=== PATIENT | male | born 1960 | race Caucasian/White ===

== ENCOUNTER 2018-01-22 20:00 | Inpatient (IN) | payer BC, OTHER ==
[~2018-01-22] VITALS: Ht 175.3 cm; Wt 99.1 kg
[~2018-01-22 20:00] MED LIST: AUGMENTIN500 MG PO; AZITHROMYCIN250 MG PO; CARDIZEM CD,CA240 MG PO; CHLORDIAZEPOXID25 MG PO; CYMBALTA30 MG PO; Cardizem CD,Cartia X PO; Ceftin PO; DUONEB 2.5-0.5 M3 ML AEROSOL; FLONASE16 G1 BOTH NARES; FOLIC ACID1 MG PO; Flonase BOTH NARES; Folvite PO; LANTUS 3 M100 UNITS1 SC; LASIX20 MG PO; LEVETIRACE100 MG/1 M PO; LEVO-T112 MCG PO; LIBRIUM25 MG PO; Lasix PO; METFORMIN HCL500 MG PO; NICOTINE PATCH1 EAC1 TD; NICOTINE PATCH1 EAC2 TD; NOVOLOG PE100 UNITS/ SC; PROTONIX40 MG PO; SUDAFED PE PRE1 EAC3 PO; SYNTHROID112 MCG PO; THERAGRAN1 TABLET PO; Thiamine,Vitamin B1 PO; VENTOLIN HFA18 GM IH; VITAMIN B-1100 MG PO; VITAMIN B-1250 MG PO; ZOLPIDEM TARTRAT5 MG PO
[2018-01-22 20:35] LABS: HEMATOCRIT 28.9 % (38.0-50.0); HEMOGLOBIN 10.7 G/DL (12.5-16.6); MCH 37.4 PG (29.0-34.0); NRBC (%) 0.4 /100 WBC (0-0); PLATELET COUNT 53 K/uL (156-360); RBC DIS.WIDTH-CV 14.9 % (11.8-14.6); RED BLOOD COUNT 2.86 M/uL (4.00-5.50); WHITE BLOOD COUNT 10.3 K/uL (4.1-10.2)
[2018-01-22 20:52] LABS: ALBUMIN 2.5 g/dL (3.2-4.8); CHLORIDE 87 mEq/L (99-109); POTASSIUM 2.9 mEq/L (3.7-5.4); SODIUM 128 mEq/L (136-147)
[2018-01-22 20:55] LABS: GLUCOSE 132 mg/dL (70-99); TOTAL PROTEIN 8.4 g/dL (6.4-8.3)
[2018-01-22 20:56] LABS: TOTAL BILIRUBIN 3.6 mg/dL (0.0-1.0)
[2018-01-22 20:57] LABS: SERUM ETHYL ALCOHOL 165 mg/dL
[2018-01-22 20:58] LABS: ALKALINE PHOSPHATASE 124 IU/L (3-129); CREATININE 1.4 mg/dL (0.6-1.3); GFR ESTIMATE (CALCULATED) 55 mL/min/ (58.99-99999)
[2018-01-22 20:59] LABS: UREA NITROGEN (BUN) 26 mg/dL (9-23)
[2018-01-22 21:00] LABS: AST (GOT) 142 IU/L (2-34)
[2018-01-22 21:01] LABS: ALT (GPT) 17 IU/L (3-49)
[2018-01-22 21:04] LABS: TROP-I INTERPRETATION NEGATIVE; TROPONIN-I 0.07 ng/mL (0.0-0.30)
[2018-01-22 21:30] LABS: ABS NEUTROPHIL COUNT 9.8; ANISOCYTOSIS 1+; BAND NEUTROPHILS 19.5 % (0-8.0); EOSINOPHIL ABS CT 0; LYMPHOCYTES 1.8 % (15.0-45.0); MACROCYTES 2+; MONOCYTES 2.6 % (0-9.0); SEG.NEUTROPHILS 76.1 % (46.0-76.0)
[2018-01-22 21:31] LABS: CREATINE KINASE 621 IU/L (1-294); LIPASE 103 U/L (1.0-51.0)
[2018-01-22 21:47] LABS: INTER. NORMALIZED RATIO 1.9
[2018-01-23] VITALS (29 sets, daily range): BP systolic 111–180; BP diastolic 53–641
[2018-01-23 00:08] LABS: COMMENTS - BLOOD GASES C+; O2 FLOW 3 L/MIN; SITE RR
[2018-01-23 00:09] LABS: DEVICE NC; PCO2 23 mm Hg (35-45); PO2 86 mm Hg (80-100); TOTAL RESP RATE 23 resp/min; pH 7.43 (7.35-7.45)
[2018-01-23 00:10] LABS: BASE EXCESS -7.9 mEq/L (-3 to +3); BICARBONATE 15.3 mEq/L (22-26); METHEMOGLOBIN 0.9 % (0-1.5); O2 SATURATION (CALCULATED) 98.7 % (95-99)
[2018-01-23 00:27] LABS: MAGNESIUM 0.5 mg/dL (1.3-2.7)
[2018-01-23 00:58] LABS: CHLORIDE 95 mEq/L (99-109); POTASSIUM 2.5 mEq/L (3.7-5.4); SODIUM 128 mEq/L (136-147)
[2018-01-23 01:00] LABS: GLUCOSE 123 mg/dL (70-99)
[2018-01-23 01:03] LABS: PHOSPHORUS 3.4 mg/dL (2.5-4.9)
[2018-01-23 01:04] LABS: CREATININE 1.3 mg/dL (0.6-1.3); GFR ESTIMATE (CALCULATED) > 59 mL/min/ (58.99-99999)
[2018-01-23 01:05] LABS: UREA NITROGEN (BUN) 23 mg/dL (9-23)
[2018-01-23 01:27] LABS: APPEARANCE CLOUDY ((CLEAR)); BILIRUBIN SMALL; BLOOD LARGE; COLOR AMBER ((YELLOW)); GLUCOSE (STRIP) NEGATIVE; KETONES NEGATIVE; LEUKOCYTES TRACE; NITRITE NEGATIVE; PROTEIN (STRIP) 100; SPECIFIC GRAVITY 1.019 (1.000-1.030)
[2018-01-23 01:43] LABS: RED BLOOD CELLS TNTC /HPF (0-5)
[2018-01-23 01:44] LABS: BACTERIA 2+ /HPF; EPITHELIAL CELLS RARE /HPF; MUCUS NONE SEEN /LPF; UCUL ADDED? YES
[2018-01-23 01:45] LABS: COARSE GRANULAR CASTS 0-5 /LPF; FINE GRANULAR CASTS 0-5 /LPF; HYALINE CASTS RARE /LPF
[2018-01-23 01:47] LABS: AMPHETAMINE NEGATIVE (500 ng/mL); BENZODIAZEPINES NEGATIVE (150 ng/mL); COCAINE NEGATIVE (150 ng/mL); METHAMPHETAMINE NEGATIVE (500 ng/mL); OPIATES (MORPHINE) NEGATIVE (100 ng/mL); PHENCYCLIDINE NEGATIVE (25 ng/mL); THC CANNABINOIDS NEGATIVE (50 ng/mL); TRICYCLIC ANTIDEPRESSANTS NEGATIVE (300 ng/mL)
[2018-01-23 01:48] LABS: BARBITURATES NEGATIVE (200 ng/mL); BUPRENORPHINE NEGATIVE (10 ng/mL); METHADONE NEGATIVE (200 ng/mL); OXYCODONE NEGATIVE (100 ng/mL); PROPOXYPHENE NEGATIVE (300 ng/mL)
[2018-01-23 07:40] LABS: CHLORIDE 97 MEQ/L (99-109); CREATINE KINASE 425 IU/L (1-294); CREATININE 1.1 MG/DL (0.6-1.3); GFR ESTIMATE (CALCULATED) > 59 mL/min/ (58.99-99999); GLUCOSE 146 mg/dL (70-99); MAGNESIUM 2.2 mg/dl (1.3-2.7); SODIUM 133 MEQ/L (136-147); UREA NITROGEN (BUN) 21 mg/dL (9-23)
[2018-01-23 07:54] LABS: HEMATOCRIT 20.7 % (38.0-50.0); MCH 37.8 PG (29.0-34.0); MCHC 36.7 G/DL (30.0-36.0); NRBC (%) 0.3 /100 WBC (0-0); PLAT.SUFFICIENCY VERY DECREASED; RBC DIS.WIDTH-CV 15.2 % (11.8-14.6); RBC DIS.WIDTH-SD 56.7 % (39-53); WHITE BLOOD COUNT 6.8 K/uL (4.1-10.2)
[2018-01-23 07:55] LABS: HEMOGLOBIN 7.6 G/DL (12.5-16.6); IMM.PLATELET FRACTION 12.4 (1-7); PLATELET COUNT 31 K/uL (156-360); RED BLOOD COUNT 2.01 M/uL (4.00-5.50)
[2018-01-23 10:38] LABS: HEMOGLOBIN A1c (GLYCOHEMOGLOB) 5.2 % (Below 5.7)
[2018-01-23 10:45] LABS: BASE EXCESS -8.2 mEq/L (-3 to +3); BICARBONATE 15.2 mEq/L (22-26); CARBOXY HGB 2.1 % (0-5); METHEMOGLOBIN 1.7 % (0-1.5); PCO2 24 mm Hg (35-45); pH 7.41 (7.35-7.45)
[2018-01-23 10:46] LABS: PO2 67 mm Hg (80-100)
[2018-01-23 10:47] LABS: DEVICE NC; O2 FLOW 4 L/MIN; SITE R ALINE; TOTAL RESP RATE 21 resp/min
[2018-01-23 13:23] LABS: CHLORIDE 99 MEQ/L (99-109); GFR ESTIMATE (CALCULATED) > 59 mL/min/ (58.99-99999); GLUCOSE 120 mg/dL (70-99); PHOSPHORUS 2.1 mg/dL (2.5-4.9); POTASSIUM 3.6 MEQ/L (3.7-5.4); SODIUM 132 MEQ/L (136-147); UREA NITROGEN (BUN) 21 mg/dL (9-23)
[2018-01-23 16:06] LABS: CHLORIDE 105 MEQ/L (99-109); POTASSIUM 3.2 MEQ/L (3.7-5.4); SODIUM 133 MEQ/L (136-147)
[2018-01-23 16:51] LABS: GFR ESTIMATE (CALCULATED) > 59 mL/min/ (58.99-99999); GLUCOSE 123 mg/dL (70-99); UREA NITROGEN (BUN) 21 mg/dL (9-23)
[2018-01-23 17:22] LABS: HEMATOCRIT 20.6 % (38.0-50.0); HEMOGLOBIN 7.4 G/DL (12.5-16.6); MCH 37.2 PG (29.0-34.0); MCHC 35.9 G/DL (30.0-36.0); MCV 103.5 FL (86-99); NRBC (%) 0.7 /100 WBC (0-0); RBC DIS.WIDTH-CV 15.8 % (11.8-14.6); RBC DIS.WIDTH-SD 59.3 % (39-53); RED BLOOD COUNT 1.99 M/uL (4.00-5.50); WHITE BLOOD COUNT 8.2 K/uL (4.1-10.2)
[2018-01-23 17:55] LABS: BASOPHIL (%) 0.1 % (0-1); EOSINOPHIL (%) 0.2 % (0-5); HEMATOLOGY COMMENT 1 SN; IMM.PLATELET FRACTION 11.7 (1-7); IMMATURE GRANULOCYTE (%) 0.9 % (0.0-0.7); LYMPHOCYTE (%) 8.2 % (15-42); LYMPHOCYTE COUNT 0.7 K/uL (1.0-2.8); MONOCYTE (%) 7.7 % (3-12); MONOCYTE COUNT 0.6 K/uL (0-0.8); NEUTROPHIL (%) 82.9 % (45-76); NEUTROPHIL COUNT 6.8 K/uL (1.8-6.4); PLAT.SUFFICIENCY DECREASED; PLATELET COUNT 35 K/uL (156-360)
[2018-01-23 20:24] LABS: CHLORIDE 104 MEQ/L (99-109); CREATININE 1.1 MG/DL (0.6-1.3); GFR ESTIMATE (CALCULATED) > 59 mL/min/ (58.99-99999); GLUCOSE 162 mg/dL (70-99); POTASSIUM 3.5 MEQ/L (3.7-5.4); SODIUM 133 MEQ/L (136-147); UREA NITROGEN (BUN) 23 mg/dL (9-23)
[2018-01-23 20:25] LABS: PHOSPHORUS 2.7 mg/dL (2.5-4.9)
[2018-01-24] VITALS (23 sets, daily range): BP systolic 109–185; BP diastolic 63–94
[2018-01-24 00:36] LABS: POTASSIUM 4.1 mEq/L (3.7-5.4); SODIUM 135 mEq/L (136-147)
[2018-01-24 00:37] LABS: CHLORIDE 106 mEq/L (99-109)
[2018-01-24 00:41] LABS: CREATININE 0.9 mg/dL (0.6-1.3); GFR ESTIMATE (CALCULATED) > 59 mL/min/ (58.99-99999); PHOSPHORUS 3.2 mg/dL (2.5-4.9)
[2018-01-24 00:42] LABS: UREA NITROGEN (BUN) 21 mg/dL (9-23)
[2018-01-24 01:16] LABS: GLUCOSE 120 mg/dL (70-99)
[2018-01-24 04:17] LABS: C DIFF TOXIN POSITIVE (NEGATIVE)
[2018-01-24 04:31] LABS: STOOL OCCULT BLD 1ST SPECIMEN POSITIVE
[2018-01-24 05:32] LABS: BASE EXCESS -3.3 mEq/L (-3 to +3); BICARBONATE 20.2 mEq/L (22-26); CARBOXY HGB 2.1 % (0-5); COMMENTS - BLOOD GASES C+; DEVICE NCH; METHEMOGLOBIN 1.3 % (0-1.5); O2 FLOW 15 L/MIN; PCO2 29 mm Hg (35-45); PO2 73 mm Hg (80-100); SITE LR; TOTAL RESP RATE 32 resp/min; pH 7.45 (7.35-7.45)
[2018-01-24 05:47] LABS: INTER. NORMALIZED RATIO 1.7
[2018-01-24 05:48] LABS: PTT 31.7 SEC (25-37)
[2018-01-24 05:51] LABS: HEMATOCRIT 19.6 % (38.0-50.0); MCHC 35.7 G/DL (30.0-36.0); MCV 106.5 FL (86-99); NRBC (%) 0.2 /100 WBC (0-0); RBC DIS.WIDTH-CV 15.9 % (11.8-14.6); RBC DIS.WIDTH-SD 61.4 % (39-53); RED BLOOD COUNT 1.84 M/uL (4.00-5.50); WHITE BLOOD COUNT 8.3 K/uL (4.1-10.2)
[2018-01-24 05:53] LABS: PLATELET COUNT 93 K/uL (156-360)
[2018-01-24 06:10] LABS: CHLORIDE 105 MEQ/L (99-109); CREATININE 1.1 MG/DL (0.6-1.3); GFR ESTIMATE (CALCULATED) > 59 mL/min/ (58.99-99999); GLUCOSE 105 mg/dL (70-99); PHOSPHORUS 2.4 mg/dL (2.5-4.9); POTASSIUM 3.3 MEQ/L (3.7-5.4); SODIUM 135 MEQ/L (136-147); UREA NITROGEN (BUN) 21 mg/dL (9-23)
[2018-01-24 06:11] LABS: ABS NEUTROPHIL COUNT 6.4; ANISOCYTOSIS 3+; BAND NEUTROPHILS 18.3 % (0-8.0); BASOPHILS 0.9 %; EOSINOPHIL ABS CT 0.2; EOSINOPHILS 2.6 % (0-5.0); HYPOCHROMASIA 2+; LYMPHOCYTES 12.2 % (15.0-45.0); MACROCYTES 3+; MONOCYTES 6.9 % (0-9.0); NUCLEATED RBC'S 0.9; PLAT.SUFFICIENCY DECREASED; POLYCHROMASIA 2+; SEG.NEUTROPHILS 59.1 % (46.0-76.0); TARGET CELLS 2+
[2018-01-24 07:23] LABS: ALBUMIN 2.5 G/DL (3.2-4.8); ALKALINE PHOSPHATASE 73 IU/L (3-129); ALT (GPT) 16 IU/L (3-49); AST (GOT) 72 IU/L (2-34); CHLORIDE 104 MEQ/L (99-109); CREATININE 1.1 MG/DL (0.6-1.3); GFR ESTIMATE (CALCULATED) > 59 mL/min/ (58.99-99999); GLUCOSE 105 mg/dL (70-99); PHOSPHORUS 2.4 mg/dL (2.5-4.9); POTASSIUM 3.4 MEQ/L (3.7-5.4); SODIUM 136 MEQ/L (136-147); TOTAL BILIRUBIN 5.9 MG/DL (0.0-1.0); UREA NITROGEN (BUN) 21 mg/dL (9-23)
[2018-01-24 07:26] LABS: MAGNESIUM 1.3 mg/dl (1.3-2.7)
[2018-01-24 09:28] LABS: CHLORIDE 104 MEQ/L (99-109); CREATININE 1.2 MG/DL (0.6-1.3); GFR ESTIMATE (CALCULATED) > 59 mL/min/ (58.99-99999); GLUCOSE 96 mg/dL (70-99); PHOSPHORUS 2.1 mg/dL (2.5-4.9); POTASSIUM 3.4 MEQ/L (3.7-5.4); SODIUM 135 MEQ/L (136-147); UREA NITROGEN (BUN) 22 mg/dL (9-23)
[2018-01-24 10:28] LABS: CREATINE KINASE 297 IU/L (1-294)
[2018-01-24 17:03] LABS: CHLORIDE 106 MEQ/L (99-109); POTASSIUM 3.1 MEQ/L (3.7-5.4); SODIUM 136 MEQ/L (136-147)
[2018-01-24 17:08] LABS: CREATININE 1.2 MG/DL (0.6-1.3); GFR ESTIMATE (CALCULATED) > 59 mL/min/ (58.99-99999); GLUCOSE 116 mg/dL (70-99); UREA NITROGEN (BUN) 24 mg/dL (9-23)
[2018-01-25] VITALS (29 sets, daily range): BP systolic 110–155; BP diastolic 66–98
[2018-01-25 05:00] LABS: BASE EXCESS -1.5 mEq/L (-3 to +3); BICARBONATE 21.8 mEq/L (22-26); CARBOXY HGB 2.4 % (0-5); METHEMOGLOBIN 1.1 % (0-1.5); PCO2 30 mm Hg (35-45); PO2 86 mm Hg (80-100); pH 7.47 (7.35-7.45)
[2018-01-25 05:01] LABS: COMMENTS - BLOOD GASES C+; DEVICE NCH; O2 FLOW 6 L/MIN; SITE LB; TOTAL RESP RATE 24 resp/min
[2018-01-25 07:46] LABS: HEMATOCRIT 20.4 % (38.0-50.0); MCHC 33.3 G/DL (30.0-36.0); MCV 107.9 FL (86-99); NRBC (%) 0.7 /100 WBC (0-0); PLATELET COUNT 70 K/uL (156-360); RBC DIS.WIDTH-CV 15.9 % (11.8-14.6); RBC DIS.WIDTH-SD 62.5 % (39-53); RED BLOOD COUNT 1.89 M/uL (4.00-5.50); WHITE BLOOD COUNT 6.1 K/uL (4.1-10.2)
[2018-01-25 07:54] LABS: HEMOGLOBIN 6.8 G/DL (12.5-16.6)
[2018-01-25 08:01] LABS: BASOPHIL (%) 0.2 % (0-1); EOSINOPHIL (%) 1.3 % (0-5); EOSINOPHIL COUNT 0.1 K/uL (0-0.3); IMMATURE GRANULOCYTE (%) 0.7 % (0.0-0.7); LYMPHOCYTE (%) 12.3 % (15-42); LYMPHOCYTE COUNT 0.8 K/uL (1.0-2.8); MONOCYTE (%) 7.4 % (3-12); MONOCYTE COUNT 0.5 K/uL (0-0.8); NEUTROPHIL (%) 78.1 % (45-76); NEUTROPHIL COUNT 4.8 K/uL (1.8-6.4)
[2018-01-25 08:10] LABS: CHLORIDE 104 MEQ/L (99-109); CREATININE 1.2 MG/DL (0.6-1.3); GFR ESTIMATE (CALCULATED) > 59 mL/min/ (58.99-99999); POTASSIUM 3.1 MEQ/L (3.7-5.4); SODIUM 134 MEQ/L (136-147); UREA NITROGEN (BUN) 27 mg/dL (9-23)
[2018-01-25 08:12] LABS: GLUCOSE 206 mg/dL (70-99); MAGNESIUM 1.5 mg/dl (1.3-2.7); PHOSPHORUS < 1.0 mg/dL (2.5-4.9)
[2018-01-25 14:49] LABS: CHLORIDE 109 MEQ/L (99-109); POTASSIUM 3.2 MEQ/L (3.7-5.4); SODIUM 140 MEQ/L (136-147)
[2018-01-25 14:55] LABS: CREATININE 1.1 MG/DL (0.6-1.3); GFR ESTIMATE (CALCULATED) > 59 mL/min/ (58.99-99999); GLUCOSE 136 mg/dL (70-99); UREA NITROGEN (BUN) 26 mg/dL (9-23)
[2018-01-25 17:43] LABS: HEMATOCRIT 26.5 % (38.0-50.0); MCH 33.8 PG (29.0-34.0); MCHC 33.6 G/DL (30.0-36.0); NRBC (%) 0.7 /100 WBC (0-0); PLATELET COUNT 63 K/uL (156-360); RBC DIS.WIDTH-CV 20.2 % (11.8-14.6); WHITE BLOOD COUNT 5.9 K/uL (4.1-10.2)
[2018-01-25 17:48] LABS: ANISOCYTOSIS 2+; BAND NEUTROPHILS 7.1 % (0-8.0); EOSINOPHIL ABS CT 0.1; EOSINOPHILS 0.9 % (0-5.0); LYMPHOCYTES 9.7 % (15.0-45.0); MACROCYTES 2+; MONOCYTES 3.5 % (0-9.0); MYELOCYTES 0.9 %; NUCLEATED RBC'S 1.8; POLYCHROMASIA 1+; SEG.NEUTROPHILS 77.9 % (46.0-76.0); TARGET CELLS 1+
[2018-01-25 18:13] LABS: HEMOGLOBIN 8.9 G/DL (12.5-16.6); MCV 100.8 FL (86-99); RED BLOOD COUNT 2.63 M/uL (4.00-5.50)
[2018-01-26] VITALS (24 sets, daily range): BP systolic 108–164; BP diastolic 59–122
[2018-01-26 07:18] LABS: BASOPHIL (%) 0.8 % (0-1); BASOPHIL COUNT 0.1 K/uL (0-0.1); EOSINOPHIL COUNT 0.1 K/uL (0-0.3); HEMATOCRIT 35.6 % (38.0-50.0); IMMATURE GRANULOCYTE (%) 1.9 % (0.0-0.7); LYMPHOCYTE (%) 19.8 % (15-42); LYMPHOCYTE COUNT 1.5 K/uL (1.0-2.8); MCH 33.8 PG (29.0-34.0); MCHC 33.1 G/DL (30.0-36.0); MONOCYTE (%) 9.3 % (3-12); MONOCYTE COUNT 0.7 K/uL (0-0.8); NEUTROPHIL (%) 67.2 % (45-76); NEUTROPHIL COUNT 4.9 K/uL (1.8-6.4); NRBC (%) 2.5 /100 WBC (0-0); PLATELET COUNT 71 K/uL (156-360); RBC DIS.WIDTH-CV 21.6 % (11.8-14.6); RBC DIS.WIDTH-SD 81.6 % (39-53); WHITE BLOOD COUNT 7.3 K/uL (4.1-10.2)
[2018-01-26 07:22] LABS: HEMOGLOBIN 11.8 G/DL (12.5-16.6); RED BLOOD COUNT 3.49 M/uL (4.00-5.50)
[2018-01-26 07:39] LABS: CHLORIDE 109 MEQ/L (99-109); GFR ESTIMATE (CALCULATED) > 59 mL/min/ (58.99-99999); GLUCOSE 130 mg/dL (70-99); MAGNESIUM 1.7 mg/dl (1.3-2.7); PHOSPHORUS 1.1 mg/dL (2.5-4.9); POTASSIUM 3.7 MEQ/L (3.7-5.4); SODIUM 142 MEQ/L (136-147); UREA NITROGEN (BUN) 24 mg/dL (9-23); VANCOMYCIN, TROUGH 17.4 MCG/ML (10-20)
[2018-01-26 08:07] LABS: PLAT.SUFFICIENCY DECREASED
[2018-01-26 21:25] LABS: CHLORIDE 112 MEQ/L (99-109); CREATININE 1.1 MG/DL (0.6-1.3); GFR ESTIMATE (CALCULATED) > 59 mL/min/ (58.99-99999); GLUCOSE 140 mg/dL (70-99); POTASSIUM 3.3 MEQ/L (3.7-5.4); SODIUM 145 MEQ/L (136-147); UREA NITROGEN (BUN) 25 mg/dL (9-23)
[2018-01-27] VITALS (23 sets, daily range): BP systolic 95–150; BP diastolic 63–101
[2018-01-27 06:08] LABS: CHLORIDE 117 MEQ/L (99-109); CREATININE 1.1 MG/DL (0.6-1.3); GFR ESTIMATE (CALCULATED) > 59 mL/min/ (58.99-99999); GLUCOSE 138 mg/dL (70-99); POTASSIUM 3.5 MEQ/L (3.7-5.4); SODIUM 147 MEQ/L (136-147); UREA NITROGEN (BUN) 28 mg/dL (9-23)
[2018-01-27 06:12] LABS: MAGNESIUM 1.8 mg/dl (1.3-2.7); PHOSPHORUS 2.2 mg/dL (2.5-4.9)
[2018-01-27 06:21] LABS: BASOPHIL (%) 0.3 % (0-1); EOSINOPHIL (%) 0.7 % (0-5); HEMATOCRIT 28.7 % (38.0-50.0); IMMATURE GRANULOCYTE (%) 1.4 % (0.0-0.7); LYMPHOCYTE (%) 19.4 % (15-42); LYMPHOCYTE COUNT 1.1 K/uL (1.0-2.8); MCH 33.9 PG (29.0-34.0); MCHC 33.8 G/DL (30.0-36.0); MCV 100.3 FL (86-99); MONOCYTE (%) 7.1 % (3-12); MONOCYTE COUNT 0.4 K/uL (0-0.8); NEUTROPHIL (%) 71.1 % (45-76); NEUTROPHIL COUNT 4.1 K/uL (1.8-6.4); NRBC (%) 1.5 /100 WBC (0-0); PLATELET COUNT 53 K/uL (156-360); RBC DIS.WIDTH-CV 22.1 % (11.8-14.6); RBC DIS.WIDTH-SD 79.6 % (39-53); RED BLOOD COUNT 2.86 M/uL (4.00-5.50); WHITE BLOOD COUNT 5.8 K/uL (4.1-10.2)
[2018-01-27 06:22] LABS: HEMOGLOBIN 9.7 G/DL (12.5-16.6)
[2018-01-27 10:00] LABS: ALBUMIN 1.9 G/DL (3.2-4.8); ALKALINE PHOSPHATASE 70 IU/L (3-129); ALT (GPT) 14 IU/L (3-49); AST (GOT) 67 IU/L (2-34); CREATINE KINASE 72 IU/L (1-294); DIRECT BILIRUBIN 4.2 mg/dL (0.0-0.3); TOTAL BILIRUBIN 6.6 MG/DL (0.0-1.0); TOTAL PROTEIN 5.9 G/DL (6.4-8.3)
[2018-01-27 12:43] LABS: BASE EXCESS -5.9 mEq/L (-3 to +3); BICARBONATE 17.7 mEq/L (22-26); CARBOXY HGB 2.7 % (0-5); COMMENTS - BLOOD GASES A+C+; DEVICE NCH; METHEMOGLOBIN 1.1 % (0-1.5); O2 FLOW 6 L/MIN; PCO2 28 mm Hg (35-45); PO2 67 mm Hg (80-100); SITE LR; TOTAL RESP RATE 28 resp/min; pH 7.41 (7.35-7.45)
[2018-01-28] VITALS (22 sets, daily range): BP systolic 95–135; BP diastolic 61–93
[2018-01-28 06:34] LABS: HEMATOCRIT 33.1 % (38.0-50.0); MCH 34.3 PG (29.0-34.0); MCHC 33.2 G/DL (30.0-36.0); MCV 103.1 FL (86-99); NRBC (%) 2.6 /100 WBC (0-0); PLATELET COUNT 66 K/uL (156-360); RBC DIS.WIDTH-CV 23.3 % (11.8-14.6); RBC DIS.WIDTH-SD 83.7 % (39-53); RED BLOOD COUNT 3.21 M/uL (4.00-5.50); WHITE BLOOD COUNT 8.4 K/uL (4.1-10.2)
[2018-01-28 06:39] LABS: ABS NEUTROPHIL COUNT 7.3; ANISOCYTOSIS 3+; ATYPICAL LYMPHOCYTE 1.8 %; BAND NEUTROPHILS 10.5 % (0-8.0); BURR CELLS 2+; EOSINOPHIL ABS CT 0.1; EOSINOPHILS 0.9 % (0-5.0); LYMPHOCYTES 7.9 % (15.0-45.0); MACROCYTES 3+; MONOCYTES 2.6 % (0-9.0); NUCLEATED RBC'S 4.4; OVALOCYTES 1+; PLAT.SUFFICIENCY DECREASED; POIKILOCYTOSIS 3+; POLYCHROMASIA 1+; SEG.NEUTROPHILS 76.3 % (46.0-76.0); SMUDGE CELLS 15.8
[2018-01-28 07:02] LABS: ALBUMIN 1.9 G/DL (3.2-4.8); ALKALINE PHOSPHATASE 76 IU/L (3-129); ALT (GPT) 16 IU/L (3-49); AST (GOT) 70 IU/L (2-34); CHLORIDE 117 MEQ/L (99-109); CREATININE 1.2 MG/DL (0.6-1.3); GFR ESTIMATE (CALCULATED) > 59 mL/min/ (58.99-99999); GLUCOSE 143 mg/dL (70-99); MAGNESIUM 1.9 mg/dl (1.3-2.7); PHOSPHORUS 2.9 mg/dL (2.5-4.9); POTASSIUM 3.9 MEQ/L (3.7-5.4); SODIUM 148 MEQ/L (136-147); TOTAL PROTEIN 6.3 G/DL (6.4-8.3); UREA NITROGEN (BUN) 36 mg/dL (9-23)
[2018-01-28 07:03] LABS: TOTAL BILIRUBIN 8.1 MG/DL (0.0-1.0)
[2018-01-28 10:20] LABS: BASE EXCESS -3.5 mEq/L (-3 to +3); BICARBONATE 19.7 mEq/L (22-26); CARBOXY HGB 2.6 % (0-5); COMMENTS - BLOOD GASES C+; METHEMOGLOBIN 1.3 % (0-1.5); PCO2 29 mm Hg (35-45); PO2 95 mm Hg (80-100); SITE LR; pH 7.44 (7.35-7.45)
[2018-01-28 10:21] LABS: DEVICE HHFNC; FI02 60 %; O2 FLOW 60 L/MIN; TOTAL RESP RATE 32 resp/min
[2018-01-29] VITALS (18 sets, daily range): BP systolic 110–147; BP diastolic 65–84
[2018-01-29 05:38] LABS: HEMATOCRIT 28.6 % (38.0-50.0); HEMOGLOBIN 9.6 G/DL (12.5-16.6); MCH 34.8 PG (29.0-34.0); MCHC 33.6 G/DL (30.0-36.0); MCV 103.6 FL (86-99); NRBC (%) 2.2 /100 WBC (0-0); PLATELET COUNT 51 K/uL (156-360); RBC DIS.WIDTH-CV 24.4 % (11.8-14.6); RBC DIS.WIDTH-SD 83.8 % (39-53); RED BLOOD COUNT 2.76 M/uL (4.00-5.50); WHITE BLOOD COUNT 10.7 K/uL (4.1-10.2)
[2018-01-29 06:02] LABS: ALBUMIN 1.7 G/DL (3.2-4.8); ALKALINE PHOSPHATASE 59 IU/L (3-129); ALT (GPT) 18 IU/L (3-49); AST (GOT) 81 IU/L (2-34); CHLORIDE 119 MEQ/L (99-109); CREATININE 1.2 MG/DL (0.6-1.3); GFR ESTIMATE (CALCULATED) > 59 mL/min/ (58.99-99999); GLUCOSE 149 mg/dL (70-99); PHOSPHORUS 2.3 mg/dL (2.5-4.9); POTASSIUM 3.5 MEQ/L (3.7-5.4); SODIUM 151 MEQ/L (136-147); TOTAL PROTEIN 5.6 G/DL (6.4-8.3); UREA NITROGEN (BUN) 45 mg/dL (9-23)
[2018-01-29 06:21] LABS: ABS NEUTROPHIL COUNT 9.9; ANISOCYTOSIS 3+; BAND NEUTROPHILS 15.7 % (0-8.0); BURR CELLS 2+; EOSINOPHIL ABS CT 0.1; EOSINOPHILS 0.9 % (0-5.0); LYMPHOCYTES 3.5 % (15.0-45.0); MACROCYTES 3+; METAMYELOCYTES 1.7 %; MONOCYTES 1.7 % (0-9.0); NUCLEATED RBC'S 2.6; PLAT.SUFFICIENCY DECREASED; POIKILOCYTOSIS 2+; SEG.NEUTROPHILS 76.5 % (46.0-76.0)
[2018-01-30] VITALS (17 sets, daily range): BP systolic 95–149; BP diastolic 59–92
[2018-01-30 04:41] LABS: INTER. NORMALIZED RATIO 2.1
[2018-01-30 04:44] LABS: ALBUMIN 1.7 g/dL (3.2-4.8); MAGNESIUM 1.5 mg/dL (1.3-2.7); POTASSIUM 3.2 mEq/L (3.7-5.4); PTT 37.8 SEC (25-37); SODIUM 153 mEq/L (136-147)
[2018-01-30 04:45] LABS: CHLORIDE 123 mEq/L (99-109)
[2018-01-30 04:46] LABS: GLUCOSE 195 mg/dL (70-99); TOTAL PROTEIN 6.3 g/dL (6.4-8.3)
[2018-01-30 04:48] LABS: TOTAL BILIRUBIN 7.7 mg/dL (0.0-1.0)
[2018-01-30 04:49] LABS: CREATININE 1.4 mg/dL (0.6-1.3); PHOSPHORUS 2.5 mg/dL (2.5-4.9)
[2018-01-30 04:50] LABS: ALKALINE PHOSPHATASE 88 IU/L (3-129); CREATININE 1.3 mg/dL (0.6-1.3); GFR ESTIMATE (CALCULATED) > 59 mL/min/ (58.99-99999)
[2018-01-30 04:51] LABS: UREA NITROGEN (BUN) 54 mg/dL (9-23)
[2018-01-30 04:52] LABS: AST (GOT) 110 IU/L (2-34)
[2018-01-30 04:53] LABS: ALT (GPT) 23 IU/L (3-49); LIPASE 25 U/L (1.0-51.0)
[2018-01-30 06:35] LABS: HEMATOCRIT 29.9 % (38.0-50.0); HEMOGLOBIN 10.2 G/DL (12.5-16.6); MCH 35.9 PG (29.0-34.0); MCHC 34.1 G/DL (30.0-36.0); MCV 105.3 FL (86-99); RBC DIS.WIDTH-CV 25.6 % (11.8-14.6); RBC DIS.WIDTH-SD 90.5 % (39-53); RED BLOOD COUNT 2.84 M/uL (4.00-5.50); WHITE BLOOD COUNT 12.2 K/uL (4.1-10.2)
[2018-01-30 07:46] LABS: ABS NEUTROPHIL COUNT 9.4; ANISOCYTOSIS 2+; EOSINOPHIL ABS CT 0; MACROCYTES 2+; PLAT.SUFFICIENCY DECREASED
[2018-01-30 08:07] LABS: A/G RATIO 0.4 (1.1-1.8); ALBUMIN 1.7 G/DL (3.4-5.0); GLOBULINS 4.6 G/DL (2.3-3.5)
[2018-01-30 08:12] LABS: TOTAL PROTEIN 6.2 G/DL (6.4-8.2)
[2018-01-30 08:21] LABS: FOLIC ACID (FOLATE) 9.9 NG/ML (5.0-22.0)
[2018-01-30 08:46] LABS: PLATELET COUNT 31 K/uL (156-360)
[2018-01-30 09:53] LABS: BASE EXCESS -3.7 mEq/L (-3 to +3); BICARBONATE 18.9 mEq/L (22-26); CARBOXY HGB 3.2 % (0-5); METHEMOGLOBIN 1.6 % (0-1.5); PCO2 26 mm Hg (35-45); PO2 67 mm Hg (80-100); SITE LR; pH 7.47 (7.35-7.45)
[2018-01-30 09:54] LABS: COMMENTS - BLOOD GASES A+C+; DEVICE HHFNC; FI02 70 %; O2 FLOW 50 L/MIN; TOTAL RESP RATE 30 resp/min
[2018-01-31] VITALS (26 sets, daily range): BP systolic 86–247; BP diastolic 48–96
[2018-01-31 04:00] LABS: BASE EXCESS -4.4 mEq/L (-3 to +3); CARBOXY HGB 3.3 % (0-5); COMMENTS - BLOOD GASES C+A+; DEVICE HFNC; FI02 100 %; METHEMOGLOBIN 1.5 % (0-1.5); O2 FLOW 50 L/MIN; PCO2 28 mm Hg (35-45); PO2 59 mm Hg (80-100); SITE LR; pH 7.44 (7.35-7.45)
[2018-01-31 05:22] LABS: BASE EXCESS -6.2 mEq/L (-3 to +3); BICARBONATE 19.7 mEq/L (22-26); CARBOXY HGB 2.1 % (0-5); COMMENTS - BLOOD GASES C+; DEVICE VENT; FI02 100 %; MECHANICAL RATE 16 resp/min; METHEMOGLOBIN 1.2 % (0-1.5); MODE AC; PCO2 40 mm Hg (35-45); PEEP 5 CM/H20; PO2 196 mm Hg (80-100); SITE A-LINE; TIDAL VOLUME 500 ML; TOTAL RESP RATE 25 resp/min
[2018-01-31 05:53] LABS: INTER. NORMALIZED RATIO 2.2
[2018-01-31 10:21] LABS: HEMATOCRIT 33.4 % (38.0-50.0); MCH 32.8 PG (29.0-34.0); MCHC 32.9 G/DL (30.0-36.0); NRBC (%) 4.2 /100 WBC (0-0); RBC DIS.WIDTH-CV 32.2 % (11.8-14.6); RBC DIS.WIDTH-SD 107.6 % (39-53); RED BLOOD COUNT 3.35 M/uL (4.00-5.50); WHITE BLOOD COUNT 12.4 K/uL (4.1-10.2)
[2018-01-31 10:25] LABS: INTER. NORMALIZED RATIO 2.1
[2018-01-31 10:28] LABS: PTT 39.4 SEC (25-37)
[2018-01-31 10:28] LABS: ALBUMIN 2.1 G/DL (3.2-4.8); ALKALINE PHOSPHATASE 74 IU/L (3-129); ALT (GPT) 27 IU/L (3-49); AST (GOT) 112 IU/L (2-34); CHLORIDE 120 MEQ/L (99-109); CREATININE 1.7 MG/DL (0.6-1.3); GFR ESTIMATE (CALCULATED) 44 mL/min/ (58.99-99999); GLUCOSE 137 mg/dL (70-99); MAGNESIUM 2.3 mg/dl (1.3-2.7); SODIUM 151 MEQ/L (136-147); UREA NITROGEN (BUN) 59 mg/dL (9-23)
[2018-01-31 10:29] LABS: ABS NEUTROPHIL COUNT 10.6; ANISOCYTOSIS 3+; ATYPICAL LYMPHOCYTE 0.9 %; BAND NEUTROPHILS 10.6 % (0-8.0); BURR CELLS 2+; EOSINOPHIL ABS CT 0.1; EOSINOPHILS 0.9 % (0-5.0); LYMPHOCYTES 8.8 % (15.0-45.0); MACROCYTES 3+; MONOCYTES 1.8 % (0-9.0); MYELOCYTES 1.8 %; NUCLEATED RBC'S 7.1; PLAT.SUFFICIENCY DECREASED; PLATELET COUNT 32 K/uL (156-360); POIKILOCYTOSIS 1+; POLYCHROMASIA 3+; SEG.NEUTROPHILS 75.2 % (46.0-76.0); SMUDGE CELLS 3.5; TEAR DROP CELLS 1+
[2018-01-31 10:30] LABS: MCV 99.7 FL (86-99)
[2018-01-31 10:33] LABS: PHOSPHORUS 3.8 mg/dL (2.5-4.9); POTASSIUM 3.9 MEQ/L (3.7-5.4); TOTAL BILIRUBIN 10.7 MG/DL (0.0-1.0); TOTAL PROTEIN 6.5 G/DL (6.4-8.3)
[2018-02-01 06:06] LABS: INTER. NORMALIZED RATIO 2.2
[2018-02-01 06:19] LABS: HEMATOCRIT 26.6 % (38.0-50.0); MCH 32.7 PG (29.0-34.0); MCV 102.3 FL (86-99); NRBC (%) 4.4 /100 WBC (0-0); RBC DIS.WIDTH-CV 33.7 % (11.8-14.6); WHITE BLOOD COUNT 10.6 K/uL (4.1-10.2)
[2018-02-01 06:20] LABS: HEMOGLOBIN 8.5 G/DL (12.5-16.6)
[2018-02-01 06:37] LABS: PTT 37.7 SEC (25-37)
[2018-02-01 06:58] LABS: IMM.PLATELET FRACTION 13.4 (1-7)
[2018-02-01 06:59] LABS: PLATELET COUNT 24 K/uL (156-360)
[2018-02-01 07:00] VITALS: BP 98/46
[2018-02-01 07:18] LABS: ALBUMIN 2.3 G/DL (3.2-4.8); ALKALINE PHOSPHATASE 58 IU/L (3-129); ALT (GPT) 29 IU/L (3-49); AST (GOT) 122 IU/L (2-34); CHLORIDE 126 MEQ/L (99-109); GLUCOSE 140 mg/dL (70-99); SODIUM 158 MEQ/L (136-147); TOTAL BILIRUBIN 12.3 MG/DL (0.0-1.0); TOTAL PROTEIN 5.7 G/DL (6.4-8.3); UREA NITROGEN (BUN) 67 mg/dL (9-23)
[2018-02-01 07:19] LABS: CREATININE 2.2 MG/DL (0.6-1.3); GFR ESTIMATE (CALCULATED) 33 mL/min/ (58.99-99999)
[2018-02-01 08:00] VITALS: BP 98/46
[2018-02-01 08:30] LABS: METHEMOGLOBIN 1.1 % (0-1.5)
[2018-02-01 08:32] LABS: BICARBONATE 13.4 mEq/L (22-26); COMMENTS - BLOOD GASES C+ANA; DEVICE 980 PB; FI02 80 %; MODE SPONT; PCO2 32 mm Hg (35-45); PEEP 8 CM/H20; PO2 132 mm Hg (80-100); PRES. SUPPORT 15 CM/H2O; SITE ALINE; TOTAL RESP RATE 23 resp/min; pH 7.23 (7.35-7.45)
[2018-02-01 12:29] LABS: THYROTROPIN (TSH) 0.71 MIU/L (0.4-5.5)
[2018-02-01 13:09] LABS: HEPATITIS B SURFACE ANTIGEN Nonreactive
[2018-02-01 13:10] LABS: ANTI-HEPATITIS A VIRUS (IGM) Nonreactive
[2018-02-01 13:19] LABS: HEPATITIS B SURFACE ANTIBODY REACTIVE
[2018-02-01 16:00] VITALS: BP 87/46
[2018-02-01 19:00] VITALS: BP 105/51
[2018-02-01 21:03] LABS: HCV RNA (IU/mL) <15 IU/mL (())
[2018-02-01 21:29] LABS: BASE EXCESS -21.4 mEq/L (-3 to +3); CARBOXY HGB 1.8 % (0-5)
[2018-02-01 21:30] LABS: BICARBONATE 9.5 mEq/L (22-26); PCO2 43 mm Hg (35-45); PO2 109 mm Hg (80-100); pH 6.95 (7.35-7.45)
[2018-02-01 21:31] LABS: COMMENTS - BLOOD GASES C+; DEVICE VENT; FI02 80 %; INSPIRATION TIME 0.7 seconds; MECHANICAL RATE 22 resp/min; MODE AC VC+; PEEP 8 CM/H20; SITE A LINE; TIDAL VOLUME 450 ML
[2018-02-02 09:22] LABS: HCV RNA (LOG IU/mL) <1.18 (())
[2018-02-05 08:28] LABS: ALBUMIN 1.84 G/DL (3.6-4.9); ALPHA-1 GLOBULIN 0.42 G/DL (0.15-0.40); ALPHA-2 GLOBULIN 0.53 G/DL (0.45-0.85); BETA-GLOBULIN 1.18 G/DL (0.65-1.15); GAMMA-GLOBULIN 2.23 G/DL (0.60-1.35)
== END 2018-02-01 22:43 | DRG 871 ==
LOC: EME → EDBD 20:00 → EDOF 23:44 → 4WEST 23:44 → ENRESERV 23:51 → 4WEST 01-23 01:41
PROVIDERS: Emergency Medicine; Internal Medicine; Specialist; Surgery
DX: A41.02 Sepsis due to Methicillin resistant Staphylococcus aureus (principal); A04.72 Enterocolitis due to Clostridium difficile, not specified as recurrent; N17.9 Acute kidney failure, unspecified; E87.2 Acidosis; E83.51 Hypocalcemia; E87.1 Hypo-osmolality and hyponatremia; E87.6 Hypokalemia; K70.9 Alcoholic liver disease, unspecified; J69.0 Pneumonitis due to inhalation of food and vomit; L30.9 Dermatitis, unspecified; J15.212 Pneumonia due to Methicillin resistant Staphylococcus aureus; I11.0 Hypertensive heart disease with heart failure; I47.1 Supraventricular tachycardia; E83.42 Hypomagnesemia; Z66 Do not resuscitate; G40.909 Epilepsy, unspecified, not intractable, without status epilepticus; E87.8 Other disorders of electrolyte and fluid balance, not elsewhere classified; F17.210 Nicotine dependence, cigarettes, uncomplicated; E83.39 Other disorders of phosphorus metabolism; Y90.6 Blood alcohol level of 120-199 mg/100 ml; F10.239 Alcohol dependence with withdrawal, unspecified; R19.7 Diarrhea, unspecified; F10.10 Alcohol abuse, uncomplicated; K21.9 Gastro-esophageal reflux disease without esophagitis; E03.9 Hypothyroidism, unspecified; Z86.73 Personal history of transient ischemic attack (TIA), and cerebral infarction without residual deficits; I33.0 Acute and subacute infective endocarditis; K70.30 Alcoholic cirrhosis of liver without ascites; J96.01 Acute respiratory failure with hypoxia; A41.9 Sepsis, unspecified organism; R65.21 Severe sepsis with septic shock; N39.0 Urinary tract infection, site not specified; B95.62 Methicillin resistant Staphylococcus aureus infection as the cause of diseases classified elsewhere; D68.9 Coagulation defect, unspecified; D63.8 Anemia in other chronic diseases classified elsewhere; E87.0 Hyperosmolality and hypernatremia; D69.6 Thrombocytopenia, unspecified; E11.649 Type 2 diabetes mellitus with hypoglycemia without coma; D61.818 Other pancytopenia; I48.2 Chronic atrial fibrillation; E83.119 Hemochromatosis, unspecified; R18.8 Other ascites; K70.0 Alcoholic fatty liver; Z91.19 Patient's noncompliance with other medical treatment and regimen; F05 Delirium due to known physiological condition; L73.9 Follicular disorder, unspecified; I42.6 Alcoholic cardiomyopathy
CPT/HCPCS: 36600; 70450; 71045; 74176; 76705; 80048; 80048 91; 80053; 80076; 80202; 80306 90; 81003; 82010; 82140; 82272; 82330; 82390; 82533 91; 82550; 82565; 82607; 82693 90; 82746; 82803; 82948; 83036; 83605; 83690; 83735; 83880; 83930; 84100; 84165; 84300; 84443; 84484; 84600 90; 85025; 85025 91; 85027; 85610; 85730; 86706; 86709; 86850; 86900; 86901; 86920; 87040; 87070; 87077; 87086; 87106; 87147; 87186; 87205; 87340; 87493; 87502; 87522 90; 87641; 87801; 90686; 92526 GN; 92610 GN; 93005; 93306; 93971; 94002; 94003; 94640; 94640 76; 94667; 94668; 94760; 94799; 97530 GO; 97530 GP; 99202; 99281; 99285; C1751; G0480; J0131; J0171; J0282; J0330; J0610; J1720; J1815; J1940; J2060; J2543; J2704; J3010; J3370; J3411; J3430; J3475; J3480; J7030; J7040; J7050; J7070; P9016; P9017; P9035; P9045; P9047; S0030